=== PATIENT | female | born 1970 | race Caucasian/White ===

== ENCOUNTER → 2021-01-28 | Outpatient (CLI) | payer BC | LOC: KOH-I 16:15 | DX: M16.12 Unilateral primary osteoarthritis, left hip (principal); M17.12 Unilateral primary osteoarthritis, left knee | CPT/HCPCS: 73502; 73562 ==

== ENCOUNTER → 2021-07-28 | Outpatient (CLI) | payer BC | LOC: KOH-I 07-24 13:30 | DX: M54.2 Cervicalgia (principal); E03.9 Hypothyroidism, unspecified | CPT/HCPCS: 76536 ==

== ENCOUNTER → 2021-08-07 | Outpatient (CLI) | payer BC | LOC: KOH-I 12:37 | DX: M54.50 Low back pain, unspecified (principal); M47.817 Spondylosis without myelopathy or radiculopathy, lumbosacral region | CPT/HCPCS: 72100 ==

== ENCOUNTER → 2021-11-06 | Outpatient (CLI) | payer BC | LOC: MAMO 07:48 | DX: Z12.31 Encounter for screening mammogram for malignant neoplasm of breast (principal) | CPT/HCPCS: 77063; 77067 ==